=== PATIENT | male | born 1985 | race Two or more races ===

== ENCOUNTER 2020-06-27 20:28 | Emergency (ER) | payer OTHER ==
[~2020-06-27] VITALS: Ht 175.3 cm; Wt 63.5 kg
[2020-06-27] MEDS ORDERED: LIDOCAINE VISC 2% SOLN 15 ML UDC PO ONE (20:45)
[2020-06-27] MEDS ORDERED: MAGNESIUM/ALUMINUM/SIMETHICONE 30 ML UDC PO ONE (20:45)
[2020-06-27] MEDS ORDERED: LIDOCAINE VISC 2% SOLN 15 ML UDC ONE (21:01)
[2020-06-27] MEDS ORDERED: MAGNESIUM/ALUMINUM/SIMETHICONE 30 ML UDC ONE (21:01)
--- NOTE | 2020-06-27 21:34 | Emergency Department Note ---
History of Present Illnes History of Present Illness Chief Complaint: Eye, Ear, Nose, Throat, Dental History of Present Illness This is a 34 year old Other male Chief Complaint Comment PT STATES HAS A FISH BONE STUCK IN HIS THROAT SINCE LAST SUNDAY (9 DAYS AGO), WAS GIVEN A ABX BY TELEMED DOC WHILE AT [facility], DENIES DIFFICULTY SWALLOWING, HE JUST FEELS IT EVERYTIME HE DRINKS OR SWALLOWS . Historian: Patient, Friend Arrival Mode: [employer] PERSONN[employer] Onset (how long ago): day(s) Location: throat Quality: irritation Radiation: Denies non-radiation, Denies back, Denies neck, Denies extremity, Denies abdomen, Denies periumbilical, Denies flank, Denies proximal, Denies distal, Denies other Severity: mild Onset quality: sudden Duration (how long): day(s) (9) Timing of current episode: intermittent Progression: waxing and waning Chronicity: new Context: Denies recent illness, Denies recent surgery, Denies recent imm obilization, Denies recent travel, Denies trauma/injury, Denies new medications, Denies hx of DVT/PE, Denies non-compliance w/ medications, Denies other Relieving factors: none Exacerbating factors: none Associated symptoms: Denies denies other symptoms, Denies confusion, Denies chest pain, Denies cough, Denies diaphoresis, Denies fever/chills, Denies headaches, Denies loss of appetite, Denies malaise, Denies nausea/vomiting, Denies rash, Denies seizure, Denies shortness of breath, Denies syncope, Denies weakness, Denies other Treatments prior to arrival: none Past Medical/Family History Physician Review I have reviewed the patient's past medical and family history. Any updates have been documented here. Past Medical History Recent Fever: No Clinical Suspicion of Infectio: No New/Unexplained Change in Ment: No Past Medical History: None Past Surgical History: None Social History Smoking Cessation: Never Smoker Counseling Performed: No Alcohol Use: None Any Illegal Drug Use: No Other Any Pre-Existing Lines (PICC,: No Review of Systems Review of Systems Constitutional: Reports no symptoms EENTM: Reports no symptoms Cardiovascular: Reports no symptoms Respiratory: Reports no symptoms Gastrointestinal: Reports as per HPI Genitourinary: Reports no symptoms Musculoskeletal: Reports no symptoms Integumentary: Reports no symptoms Neurological: Reports no symptoms Psychological: Reports no symptoms Endocrine: Reports no symptoms Hematological/Lymphatic: Reports no symptoms Physical Exam Related Data Allergies: Coded Allergies: No Known Allergies (Unverified , 06/27/20) Triage Vital Signs Vital Signs Date Time Temp Pulse Resp B/P (MAP) Pulse Ox O2 Delivery O2 Flow Rate FiO2 06/27/20 20:30 98.2 80 18 139/93 99 Vital signs reviewed: Yes Physical Exam CONSTITUTIONAL Constitutional: Present well-developed, Present well-nourished HENT HENT: Present normocephalic, Present atraumatic, Present oropharynx manda ar/moist, Present nose normal HENT L/R: Present left ext ear normal, Present right ext ear normal EYES Eyes: Reports PERRL, Reports conjunctivae normal NECK Neck: Present ROM normal PULMONARY Pulmonary: Present effort normal, Present breath sounds normal CARDIOVASCULAR Cardiovascular: Present regular rhythm, Present heart sounds normal, Present capillary refill normal, Present normal rate GASTROINTESTINAL Abdominal: Present soft, Present nontender, Present bowel sounds normal GENITOURINARY Genitourinary: Present exam deferred SKIN Skin: Present warm, Present dry MUSCULOSKELETAL Musculoskeletal: Present ROM normal NEUROLOGICAL Neurological: Present alert, Present oriented x 3, Present no gross motor or sensory deficits PSYCHOLOGICAL Psychological: Present mood/affect normal, Present judgement normal Results Imaging Imaging results reviewed: Yes Assessment & Plan Medical Decision Making [facility] FB,,,,OBSTRUCTION Reassessment Reassessment BETTER Assessment & Plan Final Impression: (1) Esophageal abrasion Depart Disposition: HOME, SELF-CARE Last Vital Signs Date Time Temp Pulse Resp B/P (MAP) Pulse Ox O2 Delivery O2 Flow Rate FiO2 06/27/20 20:30 98.2 80 18 139/93 99 Medications in the ED Lidocaine HCl 10 ml ONCE ONCE PO Last administered on 06/27/20at 20:57; Admin Dose 10 ML; Start 06/27/20 at 20:45; Stop 06/27/20 at 20:48; Status DC Magnesium Aluminum Silicate 30 ml ONCE ONCE PO Last administered on 06/27/20at 20:57; Admin Dose 30 ML; Start 06/27/20 at 20:45; Stop 06/27/20 at 20:48; Status DC Lidocaine HCl 15 ml STK-MED ONCE .ROUTE ; Start 06/27/20 at 21:01; Stop 9/6/20 at 20:55; Status DC Magnesium Aluminum Silicate 30 ml STK-MED ONCE .ROUTE ; Start 06/27/20 at 21:01; Stop 06/27/20 at 20:55; Status DC ANSELMO CAMP MD Jun 27, 2020 21:34
--- NOTE | 2020-06-27 21:34 | Diagnostic Imaging Report ---
NECK SOFT TISSUE - [facility]OPD - 2 views HISTORY: Pain COMPARISON: None available. IMPRESSION: No acute abnormalities. Normal cervical spine. No radiopaque foreign body visualized. Signed by: Dr. Rafiq Warner MD on 06/27/2020 9:30 PM
== END 2020-06-27 22:09 | disposition home or self-care (01) ==
LOC: FSED 21:02
DX: S27.818A Other injury of esophagus (thoracic part), initial encounter (principal); R09.89 Other specified symptoms and signs involving the circulatory and respiratory systems; T17.928A Food in respiratory tract, part unspecified causing other injury, initial encounter
CPT/HCPCS: 70360; 99283